=== PATIENT | female | born 1990 | race Caucasian/White ===

== ENCOUNTER → 2019-05-15 | Outpatient (CLI) | payer MEDICAID ==
--- NOTE | 2019-05-15 14:09 | Diagnostic Imaging Report ---
INDICATION: survey. TECHNIQUE: Multiple real-time grayscale images were obtained over the gravid uterus. COMPARISON: None. FINDINGS: There is a single live fetus in a cephalic presentation. heart rate was recorded at 160 beats per minute. Placenta is anterior and fundal. Amniotic fluid volume appears within normal limits. Cervical length is 3.9 cm. survey demonstrates kidneys, bladder, and stomach to be unremarkable. The brain is unremarkable. There is a four-chamber heart. There is a three-vessel cord. Cord insertion was not well visualized on today's study. The spine is unremarkable. Biometrical measurements are as follows: Biparietal 4.72 cm, age 20 weeks 2 days. Head circumference 17.1 cm, age 19 weeks 5 days. Abdominal circumference 13.6 cm, age 19 weeks 1 days. Femur length 3.1 cm, age 19 weeks 4 days. Sonographic estimate age: 19 weeks 5 days. Sonographic estimated date of delivery: 10/04/2019. Estimated Weight: 286 gm (+/- 42 gm). LMP percentile: 14%. heart rate: 160 beats per minute. number: 1 of 1. IMPRESSION: Single live IUP of approximately 19 weeks 5 days gestational age with estimated date of confinement sonographically of 10/04/2019. survey is unremarkable, although cord insertion was not well demonstrated on today's study. Dictated by: Dictated on workstation # [id number]
== END ==
LOC: RAD 12:10
PROVIDERS: ATTEND Obstetrics & Gynecology
DX: Z36.89 Encounter for other specified antenatal screening (principal); Z3A.19 19 weeks gestation of pregnancy
CPT/HCPCS: 76805

== ENCOUNTER → 2019-07-16 | Outpatient (CLI) | payer MEDICAID ==
--- NOTE | 2019-07-16 13:13 | Diagnostic Imaging Report ---
INDICATION: Smaller than dates. TECHNIQUE: Multiple real-time grayscale images were obtained over the gravid uterus. COMPARISON: None 05/15/2019. FINDINGS: There is a single live fetus in a cephalic presentation. heart rate was recorded at 140 beats per minute. Placenta is anterior. Amniotic fluid volume is 17.8 cm. Survey shows kidneys, bladder stomach to be unremarkable. The brain is unremarkable. There appears to be a two-vessel cord present. Cord insertion is unremarkable. Biometrical measurements are as follows: Biparietal 7.4 cm, age 29 weeks 4 days. Head circumference 26.4 cm, age 28 weeks 6 days. Abdominal circumference 24.3 cm, age 28 weeks 5 days. Femur length 5.4 cm, age 28 weeks 6 days. Sonographic estimate age: 29 weeks 0 days. Sonographic estimated date of delivery: 10/01/2019. Estimated Weight: 1270 G gm (+/- 185 gm). LMP percentile: 31%%. heart rate: 140 beats per minute. number: 1 of 1. IMPRESSION: Single live IUP approximately 29 weeks gestational age showing normal interval growth when compared with prior exam from 05/15/2019. Fetus appears to have a two-vessel cord. Followup can be performed. Dictated by: Dictated on workstation # [id number]
== END ==
LOC: RAD 12:02
PROVIDERS: ATTEND Obstetrics & Gynecology
DX: O26.842 Uterine size-date discrepancy, second trimester (principal); O21.0 Mild hyperemesis gravidarum; Z3A.29 29 weeks gestation of pregnancy
CPT/HCPCS: 76805

== ENCOUNTER 2019-09-28 07:37 | Inpatient (IN) | payer MEDICAID ==
[~2019-09-28] VITALS: Ht 165.1 cm; Wt 64.6 kg
[2019-09-28] VITALS (48 sets, daily range): BP systolic 105–142; BP diastolic 56–88
--- NOTE | 2019-09-28 07:30 | NUR ---
Arrive to unit with c/o contractions. Wt obtained and to room 320. gowned and urine sample obtained. to bed and monitors on. Oriented to room, call light and surroundings.
[2019-09-28 08:19] LABS: BILIRUBIN,URINE NEGATIVE (NEGATIVE); CLARITY,URINE CLEAR; COLOR,URINE YELLOW; GLUCOSE, URINE (UA) NEGATIVE (NEGATIVE); KETONES,URINE 1+ (NEGATIVE); LEUKOCYTE ESTERASE ,URINE NEGATIVE (NEGATIVE); NITRITE,URINE NEGATIVE (NEGATIVE); PH,URINE 7 (5-9); PROTEIN,URINE NEGATIVE (NEGATIVE)
[2019-09-28 08:26] LABS: BACTERIA,URINE FEW /HPF; WBC,URINE RARE /HPF
--- NOTE | 2019-09-28 08:50 | NUR ---
Dr Wood notified of pt arrival, gestation, contractions, fhr pattern, sve.
--- NOTE | 2019-09-28 09:49 | History & Physical-OB ---
OB - Chief Complaint & HPI Date/Time Date of Admission: Date of Admission: Date seen by a Provider: Sep 28, 2019 Time Seen by a Provider: 09:45 Chief Complaint/History OB-Reason for Admission/Chief: Onset of Labor Hx : 3 Hx Para: 1 Expected Date of Delivery: Oct 02, 2019 Gestational Age in Weeks: 39 Gestational Age in Days: 3 Admission Nurse Assessment Rev: Yes Allergies and Home Medications Allergies Coded Allergies: Penicillins (Verified Allergy, Unknown, 09/28/19) amoxicillin (Verified Allergy, Unknown, 09/28/19) cefaclor (Verified Allergy, Unknown, 09/28/19) nitrofurantoin (Verified Allergy, Unknown, 09/28/19) OB - History Hx of Present Care: Yes Obstetrical History Hx : 3 Hx Para: 1 Hx Total # of Abortions (Spona: 1 Social History/Family History Recent Infectious Disease Expo: No Alcohol Use: Denies Use Recreational Drug Use: No 2nd Hand Smoke Exposure: No Immunizations Date of Influenza Vaccine: Sep 18, 2019 OB - Admission Exam Physical Exam Vitals: Vital Signs 09/28/19 07:57 Temp 36.5 Pulse 74 Resp 16 Pulse Ox 99 O2 Delivery Room Air Labs Laboratory Tests Test 09/28/19 07:30 Range/Units Urine Color YELLOW Urine Clarity CLEAR Urine pH 7 5-9 Urine Specific Green 1.005 L 1.016-1.022 Urine Protein NEGATIVE NEGATIVE Urine Glucose (UA) NEGATIVE NEGATIVE Urine Ketones 1+ H NEGATIVE Urine Nitrite NEGATIVE NEGATIVE Urine Bilirubin NEGATIVE NEGATIVE Urine Urobilinogen NORMAL NORMAL MG/DL Urine Leukocyte Esterase NEGATIVE NEGATIVE Urine RBC (Auto) NEGATIVE NEGATIVE Urine RBC NONE /HPF Urine WBC RARE /HPF Urine Squamous Epithelial Cells 5-10 /HPF Urine Crystals NONE /LPF Urine Bacteria FEW H /HPF Urine Casts NONE /LPF Urine Mucus NEGATIVE /LPF Urine Culture Indicated NO BERNICE TORREZ DO Sep 28, 2019 09:49 POS
[2019-09-28 10:34] LABS: BASOPHILS % (AUTO) 0 % (0-10); EOSINOPHILS # (AUTO) 0.1 10^3/uL (0.0-0.3); EOSINOPHILS % (AUTO) 1 % (0-10); HEMATOCRIT 38 % (35-52); HEMOGLOBIN 13.1 G/DL (11.5-16.0); LYMPHOCYTES # (AUTO) 1.8 X 10^3 (1.0-4.0); LYMPHOCYTES % (AUTO) 15 % (12-44); MEAN CORPUSCULAR HEMOGLOBIN 31 PG (25-34); MEAN CORPUSCULAR HGB CONC 34 G/DL (32-36); MEAN CORPUSCULAR VOLUME 89 FL (80-99); MEAN PLATELET VOLUME 10.8 FL (7.4-10.4); MONOCYTES # (AUTO) 0.5 X 10^3 (0.0-1.0); MONOCYTES % (AUTO) 4 % (0-12); NEUTROPHILS % (AUTO) 81 % (42-75); PLATELET COUNT 220 10^3/uL (130-400); WHITE BLOOD COUNT 12.4 10^3/uL (4.3-11.0)
[2019-09-28] MEDS: D5 LR IV SOLUTION 1,000 ML IV SCH ×2 (10:45→18:01)
[2019-09-28] MEDS ORDERED: SUFENTA 0.6MCG/ML BUPIVA 0.125 100 ML ONE (16:38)
[2019-09-28] MEDS ORDERED: LIDOCAINE PF 2% 5 ML (XYLOCAINE) VIAL ONE (17:12)
[2019-09-28] MEDS ORDERED: METOCLOPRAMIDE INJ 10 MG/2 ML (REGLAN) IV PRN (17:15)
[2019-09-28] MEDS ORDERED: LACTATED RINGERS 1,000 ML IV SCH (17:15)
[2019-09-28] MEDS ORDERED: ONDANSETRON 4 MG/2 ML (SDV) Z0FRAN IV PRN (17:15)
[2019-09-28] MEDS ORDERED: EPIDURAL (SUFENTA 0.6MCG/ML BUPIVA 0.125%) 100 ML BAG EPI SCH (17:15)
[2019-09-28] MEDS ORDERED: NALOXONE 0.4 MG/ML 1 ML (NARCAN) VIAL IV PRN ×2 (17:15)
[2019-09-28] MEDS ORDERED: diphenhydrAMINE 50 MG/ML INJ (BENADRYL) IV PRN (17:15)
[2019-09-28] MEDS ORDERED: OXYTOCIN/NORMAL SALINE 500 ML IV ONE (19:43)
[2019-09-28] MEDS ORDERED: OXYTOCIN/NORMAL SALINE 500 ML IV SCH ×2 (19:45→21:52)
[2019-09-28] MEDS ORDERED: WITCH HAZEL(TUCKS) 40 EA JAR TOP PRN (22:00)
[2019-09-28] MEDS ORDERED: MEASLES,MUMPS,RUBELLA 1 EA INJ SQ ONE (22:00)
[2019-09-28] MEDS ORDERED: BENZOCAINE/MENTHOL (DERMOPLAST) 56 ML CAN TP PRN (22:00)
[2019-09-28] MEDS ORDERED: CATHETER FLUSH 10 ML SYR IV SCH (22:00)
[2019-09-28] MEDS ORDERED: DIBUCAINE (NUPERCAINAL) 1% OINT 30 GM TOP PRN (22:00)
[2019-09-28] MEDS ORDERED: TETANUS,DIPTH,PERTUSS P/F (BOOSTRIX) 0.5 ML VIAL IM ONE (22:00)
--- NOTE | 2019-09-28 22:02 | OB Labor & Delivery Record ---
Vag Delivery Note Vag Delivery Note Date of Delivery: 09/28/19 Preoperative Diagnosis: Jojo aMradiaga is a (29 /Para 3 / 1,Gestational Age (wks)39with [] Postoperative Diagnosis: Same Surgeon: BERNICE TORREZ Senior Partner: JUANA Anesthesia: epidurla Delivery Type: vaginal Findings: [] Viable ma;le infant, apgars 99, weight pending Lacerations: first degree Intact placenta with 3 vessel cord. No nuchal cord, body cord or shoulder dystocia. compound presentation with right hand at chin Estimated Blood Loss: 300 ml Complications: None Condition: Stable Description of Procedure: The patient is a 29 year old female who presented []. She was admitted and informed consent was obtained. Her labor course was remarkable for [] She progressed to complete dilatation and began to push. She was then set up for delivery. The infant's head was delivered atraumatically in the [] position. The shoulders and remainder of the 's body were then delivered without difficulty. Upon delivery, the head was held below the level of the perineum and the mouth and nares were bulb suctioned. The cord was doubly clamped and cut and the was handed off to the pediatric staff. An intact placenta with 3-vessel cord delivered via Rosana and there was found to be minimal bleeding.~ Vigorous fundal massage was performed and the fundus was found to be firm. IV oxytocin was given. Examination of the vagina and perineum revealed a [] laceration repaired in the usual fashion with 3-0 vicryl suture. Following the repair, sponge, instrument and needle counts were correct. Mom and baby were both in stable condition in the labor suite. Vitals - Labs Vital Signs - I&O Vital Signs Date Time Temp Pulse Resp B/P (MAP) Pulse Ox O2 Delivery O2 Flow Rate FiO2 09/28/19 20:30 80 18 133/88 (103) 99 Room Air 09/28/19 20:15 88 18 111/56 (74) 99 Room Air 09/28/19 20:00 78 18 117/69 (85) 99 Room Air 09/28/19 19:45 74 18 108/61 (77) 99 Room Air 09/28/19 19:30 71 18 113/59 (77) 99 Room Air 09/28/19 19:15 36.5 83 18 124/59 (80) 97 Room Air 09/28/19 19:00 75 18 105/66 (79) 97 Room Air 09/28/19 18:45 36.4 73 18 115/69 (84) 97 Room Air 09/28/19 18:40 72 18 110/68 (82) 98 Room Air 09/28/19 18:37 75 18 117/72 (87) 98 Room Air 09/28/19 18:30 69 18 115/68 (84) 97 Room Air 09/28/19 18:25 77 18 125/67 (86) 98 Room Air 09/28/19 18:20 73 18 118/74 (89) 98 Room Air 09/28/19 18:15 80 18 113/66 (82) 98 Room Air 09/28/19 18:10 80 18 113/66 (82) 98 Room Air 09/28/19 18:06 87 18 116/72 (87) 98 Room Air 09/28/19 18:03 92 18 120/73 (89) 98 Room Air 09/28/19 18:00 Room Air 09/28/19 17:56 122 18 125/79 (94) 98 Room Air 09/28/19 17:51 92 18 119/72 (88) 98 Room Air 09/28/19 17:48 85 18 109/63 (78) 98 Room Air 09/28/19 17:45 Room Air 09/28/19 17:40 93 18 118/67 (84) 99 Room Air 09/28/19 17:33 87 18 123/68 (86) 98 Room Air 09/28/19 17:30 78 18 129/65 (86) 98 Room Air 09/28/19 17:27 82 18 134/81 (98) 98 Room Air 09/28/19 17:24 104 18 130/83 (99) 97 Room Air 09/28/19 17:21 89 18 122/73 (89) 98 Room Air 09/28/19 17:18 84 18 130/80 (97) 98 Room Air 09/28/19 17:15 80 18 135/75 (95) 97 Room Air 09/28/19 17:10 97 18 124/81 (95) 98 Room Air 09/28/19 17:05 85 18 133/67 (89) 98 Room Air 09/28/19 17:00 Room Air 09/28/19 16:55 37.4 87 18 127/74 (91) 99 Room Air 09/28/19 16:45 Room Air 09/28/19 16:30 78 18 142/86 (104) Room Air 09/28/19 16:00 71 18 121/82 (95) Room Air 09/28/19 15:30 37.1 71 18 115/69 (84) Room Air 09/28/19 15:00 68 18 118/74 (89) Room Air 09/28/19 14:30 36.7 76 18 119/78 (92) Room Air 09/28/19 09:00 36.5 74 18 118/78 (91) 99 Room Air 09/28/19 07:57 36.5 74 16 99 Room Air 09/28/19 07:50 36.5 76 18 99 Room Air Labs Laboratory Tests 09/28/19 07:30: Urine Color YELLOW, Urine Clarity CLEAR, Urine pH 7, Urine Specific [place] 1.005L, Urine Protein NEGATIVE, Urine Glucose (UA) NEGATIVE, Urine Ketones 1+H, Urine Nitrite NEGATIVE, Urine Bilirubin NEGATIVE, Urine Urobilinogen NORMAL, Urine Leukocyte Esterase NEGATIVE, Urine RBC (Auto) NEGATIVE, Urine RBC NONE, Urine WBC RARE, Urine Squamous Epithelial Cells 5-10, Urine Crystals NONE, Urine Bacteria FEWH, Urine Casts NONE, Urine Mucus NEGATIVE, Urine Culture Indicated NO 09/28/19 10:20: White Blood Count 12.4H, Red Blood Count 4.29L, Hemoglobin 13.1, Hematocrit 38, Mean Corpuscular Volume 89, Mean Corpuscular Hemoglobin 31, Mean Corpuscular Hemoglobin Concent 34, Red Cell Distribution Width 13.0, Platelet Count 220, Mean Platelet Volume 10.8H, Neutrophils (%) (Auto) 81H, Lymphocytes (%) (Auto) 15, Monocytes (%) (Auto) 4, Eosinophils (%) (Auto) 1, Basophils (%) (Auto) 0, Neutrophils # (Auto) 10.0H, Lymphocytes # (Auto) 1.8, Monocytes # (Auto) 0.5, Eosinophils # (Auto) 0.1, Basophils # (Auto) 0.0 BERNICE TORREZ DO Sep 28, 2019 22:02 POS
[2019-09-28] MEDS: IBUPROFEN 600 MG (MOTRIN) TAB PO SCH (23:23)
--- NOTE | 2019-09-28 23:30 | NUR ---
ff1 below. light rubra noted. enrique care completed. pad and panties applied. pt assisted to w'c and taken down to room 310. pt assisted to bathroom. unable to void at this time. pt ambulated to bed. ice pack applied to perineum. call light within reach. pt denies any further needs at this time. will continue to monitor
[2019-09-29] MEDS: ACETAMINOPHEN 500 MG TAB (TYLENOL) PO SCH ×3 (02:14→18:45)
--- NOTE | 2019-09-29 02:20 | NUR ---
pt assisted to the bathroom. positive void. pericare completed. pt assisted back to bed.
[2019-09-29 02:23] VITALS: BP 102/58
[2019-09-29] MEDS: IBUPROFEN 600 MG (MOTRIN) TAB PO SCH ×3 (05:50→18:45)
[2019-09-29 06:19] LABS: BASOPHILS % (AUTO) 0 % (0-10); EOSINOPHILS # (AUTO) 0.1 10^3/uL (0.0-0.3); EOSINOPHILS % (AUTO) 1 % (0-10); HEMATOCRIT 34 % (35-52); HEMOGLOBIN 11.5 G/DL (11.5-16.0); LYMPHOCYTES # (AUTO) 2.2 X 10^3 (1.0-4.0); LYMPHOCYTES % (AUTO) 15 % (12-44); MEAN CORPUSCULAR HEMOGLOBIN 31 PG (25-34); MEAN CORPUSCULAR HGB CONC 34 G/DL (32-36); MEAN CORPUSCULAR VOLUME 90 FL (80-99); MEAN PLATELET VOLUME 10.4 FL (7.4-10.4); MONOCYTES # (AUTO) 0.9 X 10^3 (0.0-1.0); MONOCYTES % (AUTO) 6 % (0-12); NEUTROPHILS # (AUTO) 11.2 X 10^3 (1.8-7.8); NEUTROPHILS % (AUTO) 78 % (42-75); PLATELET COUNT 205 10^3/uL (130-400); RED CELL DISTRIBUTION WIDTH 13.1 % (10.0-14.5); WHITE BLOOD COUNT 14.4 10^3/uL (4.3-11.0)
[2019-09-29 08:30] VITALS: BP 108/63
[2019-09-29] MEDS: DOCUSATE SODIUM 100 MG (COLACE) CAP PO SCH ×2 (08:38→21:59)
[2019-09-29] MEDS: PRENATAL VITAMIN 1 EA TAB PO SCH (08:38)
[2019-09-29] MEDS: FERROUS SULF 325 MG (IRON) TAB PO SCH (08:38)
--- NOTE | 2019-09-29 08:39 | Postpartum Progress Note ---
Note Note Day # [] Subjective: Patient is without complaints. Ambulating, voiding. Tolerating a regular diet without nausea or vomiting. Normal lochia. Pain is well controlled with oral pain medications. [] feeding. [] Objective: 09/28/19 09/28/19 09/28/19 09/28/19 20:45 21:00 21:30 21:45 Pulse 77 102 89 92 Resp 18 18 18 18 B/P (MAP) 128/82 (97) 139/73 (95) 125/73 (90) 129/74 (92) Pulse Ox 99 99 99 99 O2 Delivery Room Air Room Air Room Air Room Air 09/28/19 09/28/19 09/28/19 09/28/19 22:00 22:15 22:30 22:45 Temp 36.5 36.5 Pulse 86 90 108 88 Resp 18 18 18 18 B/P (MAP) 110/72 (85) 119/63 (81) 121/65 (83) 120/70 (87) Pulse Ox 99 99 99 99 O2 Delivery Room Air Room Air Room Air Room Air 09/28/19 09/29/19 23:00 02:23 Temp 36.5 Pulse 90 72 Resp 18 18 B/P (MAP) 115/67 (83) 102/58 (73) Pulse Ox 99 99 O2 Delivery Room Air Room Air 09/29/19 00:00 Intake Total 1650 ml Output Total 300 ml Balance 1350 ml Laboratory Tests Test 09/28/19 10:20 09/29/19 06:04 Range/Units White Blood Count 12.4 H 14.4 H 4.3-11.0 10^3/uL Red Blood Count 4.29 L 3.75 L 4.35-5.85 10^6/uL Hemoglobin 13.1 11.5 11.5-16.0 G/DL Hematocrit 38 34 L 35-52 % Mean Corpuscular Volume 89 90 80-99 FL Mean Corpuscular Hemoglobin 31 31 25-34 PG Mean Corpuscular Hemoglobin Concent 34 34 32-36 G/DL Red Cell Distribution Width 13.0 13.1 10.0-14.5 % Platelet Count 220 205 130-400 10^3/uL Mean Platelet Volume 10.8 H 10.4 7.4-10.4 FL Neutrophils (%) (Auto) 81 H 78 H 42-75 % Lymphocytes (%) (Auto) 15 15 12-44 % Monocytes (%) (Auto) 4 6 0-12 % Eosinophils (%) (Auto) 1 1 0-10 % Basophils (%) (Auto) 0 0 0-10 % Neutrophils # (Auto) 10.0 H 11.2 H 1.8-7.8 X 10^3 Lymphocytes # (Auto) 1.8 2.2 1.0-4.0 X 10^3 Monocytes # (Auto) 0.5 0.9 0.0-1.0 X 10^3 Eosinophils # (Auto) 0.1 0.1 0.0-0.3 10^3/uL Basophils # (Auto) 0.0 0.0 0.0-0.1 10^3/uL Physical Exam: General - Alert and oriented, no apparent distress Abdomen - Soft, appropriately tender to palpation, non-distended, fundus firm at umbilicus Extremities - no edema, negative Venkatesh's bilaterally [] Assessment: [] post- day # [], status post [] vaginal delivery. Recovering well, hemodynamically stable [] Plan: Routine care. Encourage breast feeding. Encourage ambulation. Ferrous sulfate supplementation. Plan for discharge [] Vitals - Labs Vital Signs - I&O Vital Signs Date Time Temp Pulse Resp B/P (MAP) Pulse Ox O2 Delivery O2 Flow Rate FiO2 09/29/19 02:23 36.5 72 18 102/58 (73) 99 Room Air 09/28/19 23:00 90 18 115/67 (83) 99 Room Air 09/28/19 22:45 36.5 88 18 120/70 (87) 99 Room Air 09/28/19 22:30 108 18 121/65 (83) 99 Room Air 09/28/19 22:15 36.5 90 18 119/63 (81) 99 Room Air 09/28/19 22:00 86 18 110/72 (85) 99 Room Air 09/28/19 21:45 92 18 129/74 (92) 99 Room Air 09/28/19 21:30 89 18 125/73 (90) 99 Room Air 09/28/19 21:00 102 18 139/73 (95) 99 Room Air 09/28/19 20:45 77 18 128/82 (97) 99 Room Air 09/28/19 20:30 80 18 133/88 (103) 99 Room Air 09/28/19 20:15 88 18 111/56 (74) 99 Room Air 09/28/19 20:00 78 18 117/69 (85) 99 Room Air 09/28/19 19:45 74 18 108/61 (77) 99 Room Air 09/28/19 19:30 71 18 113/59 (77) 99 Room Air 09/28/19 19:15 36.5 83 18 124/59 (80) 97 Room Air 09/28/19 19:00 75 18 105/66 (79) 97 Room Air 09/28/19 18:45 36.4 73 18 115/69 (84) 97 Room Air 09/28/19 18:40 72 18 110/68 (82) 98 Room Air 09/28/19 18:37 75 18 117/72 (87) 98 Room Air 09/28/19 18:30 69 18 115/68 (84) 97 Room Air 09/28/19 18:25 77 18 125/67 (86) 98 Room Air 09/28/19 18:20 73 18 118/74 (89) 98 Room Air 09/28/19 18:15 80 18 113/66 (82) 98 Room Air 09/28/19 18:10 80 18 113/66 (82) 98 Room Air 09/28/19 18:06 87 18 116/72 (87) 98 Room Air 09/28/19 18:03 92 18 120/73 (89) 98 Room Air 09/28/19 18:00 Room Air 09/28/19 17:56 122 18 125/79 (94) 98 Room Air 09/28/19 17:51 92 18 119/72 (88) 98 Room Air 09/28/19 17:48 85 18 109/63 (78) 98 Room Air 09/28/19 17:45 Room Air 09/28/19 17:40 93 18 118/67 (84) 99 Room Air 09/28/19 17:33 87 18 123/68 (86) 98 Room Air 09/28/19 17:30 78 18 129/65 (86) 98 Room Air 09/28/19 17:27 82 18 134/81 (98) 98 Room Air 09/28/19 17:24 104 18 130/83 (99) 97 Room Air 09/28/19 17:21 89 18 122/73 (89) 98 Room Air 09/28/19 17:18 84 18 130/80 (97) 98 Room Air 09/28/19 17:15 80 18 135/75 (95) 97 Room Air 09/28/19 17:10 97 18 124/81 (95) 98 Room Air 09/28/19 17:05 85 18 133/67 (89) 98 Room Air 09/28/19 17:00 Room Air 09/28/19 16:55 37.4 87 18 127/74 (91) 99 Room Air 09/28/19 16:45 Room Air 09/28/19 16:30 78 18 142/86 (104) Room Air 09/28/19 16:00 71 18 121/82 (95) Room Air 09/28/19 15:30 37.1 71 18 115/69 (84) Room Air 09/28/19 15:00 68 18 118/74 (89) Room Air 09/28/19 14:30 36.7 76 18 119/78 (92) Room Air 09/28/19 09:00 36.5 74 18 118/78 (91) 99 Room Air I & O 09/29/19 07:00 Intake Total 1650 ml Output Total 300 ml Balance 1350 ml Labs Laboratory Tests 09/28/19 10:20: White Blood Count 12.4H, Red Blood Count 4.29L, Hemoglobin 13.1, Hematocrit 38, Mean Corpuscular Volume 89, Mean Corpuscular Hemoglobin 31, Mean Corpuscular Hemoglobin Concent 34, Red Cell Distribution Width 13.0, Platelet Count 220, Mean Platelet Volume 10.8H, Neutrophils (%) (Auto) 81H, Lymphocytes (%) (Auto) 15, Monocytes (%) (Auto) 4, Eosinophils (%) (Auto) 1, Basophils (%) (Auto) 0, Neutrophils # (Auto) 10.0H, Lymphocytes # (Auto) 1.8, Monocytes # (Auto) 0.5, Eosinophils # (Auto) 0.1, Basophils # (Auto) 0.0 09/29/19 06:04: White Blood Count 14.4H, Red Blood Count 3.75L, Hemoglobin 11.5, Hematocrit 34L, Mean Corpuscular Volume 90, Mean Corpuscular Hemoglobin 31, Mean Corpuscular Hemoglobin Concent 34, Red Cell Distribution Width 13.1, Platelet Count 205, Mean Platelet Volume 10.4, Neutrophils (%) (Auto) 78H, Lymphocytes (%) (Auto) 1 5, Monocytes (%) (Auto) 6, Eosinophils (%) (Auto) 1, Basophils (%) (Auto) 0, Neutrophils # (Auto) 11.2H, Lymphocytes # (Auto) 2.2, Monocytes # (Auto) 0.9, Eosinophils # (Auto) 0.1, Basophils # (Auto) 0.0 Microbiology 09/28/19 Urine Culture - Final, Complete NO GROWTH BERNICE TORREZ DO Sep 29, 2019 8:39 am POS
--- NOTE | 2019-09-29 08:40 | NUR ---
A.M. ASSESSMENT COMPLETED. VSS. PT HAS HAD THE TDAP AND FLU VACCINES. IN [facility] AT BEDSIDE.
--- NOTE | 2019-09-29 10:00 | NUR ---
SHOWERED WITHOUT PROBLEMS. SENT TO NURSERY FOR SHOWER.
--- NOTE | 2019-09-29 11:26 | NUR ---
FAMILY AT BEDSIDE. HAS BEEN IN TO ASSIST WITH FEEDING.
[2019-09-29 12:00] VITALS: BP 109/61
--- NOTE | 2019-09-29 12:45 | NUR ---
CONTINUES TO DO WELL. IN BED BESIDE MOM.
--- NOTE | 2019-09-29 13:17 | Anesthesia-Regional Post-Op ---
Regional Patient Condition Mental Status: Alert, Oriented x3 Circulation: Same as Pre-Op Headache: Absent Sensation: Full Recovery Motor Block: Absent Post Op Complications Complications None Follow Up Care/Instructions Patient Instructions None needed. Anesthesia/Patient Condition Patient is doing well, no complaints, stable vital signs, no apparent adverse anesthesia problems. No complications reported per nursing. MALINI DELANEY CRNA Sep 29, 2019 13:17 POS
--- NOTE | 2019-09-29 15:00 | NUR ---
CONTINUES TO CARE FOR IN ROOM. DOING WELL. C/O CRAMPING AT INTERVALS BUT DENIES PAIN THE MAJORITY OF THE TIME.
[2019-09-29 16:15] VITALS: BP 117/67
--- NOTE | 2019-09-29 16:45 | NUR ---
VSS. NO CHANGE IN STATUS.
--- NOTE | 2019-09-29 18:00 | NUR ---
EATING STORK MEAL. CONTINUES TO DO WELL. CARING FOR IN ROOM.
[2019-09-29 21:59] VITALS: BP 115/72
[2019-09-30] MEDS: IBUPROFEN 600 MG (MOTRIN) TAB PO SCH ×3 (00:59→12:22)
[2019-09-30 03:54] VITALS: BP 98/61
[2019-09-30] MEDS: ACETAMINOPHEN 500 MG TAB (TYLENOL) PO SCH ×2 (03:54→12:21)
[2019-09-30 09:00] VITALS: BP 115/69
--- NOTE | 2019-09-30 09:00 | NUR ---
A.M. ASSESSMENT COMPLETED. VSS. ENCOURAGED AMBULATION IN THE [facility] TODAY. CARING FOR INFANT IN ROOM.
[2019-09-30] MEDS: PRENATAL VITAMIN 1 EA TAB PO SCH (09:21)
[2019-09-30] MEDS: FERROUS SULF 325 MG (IRON) TAB PO SCH (09:21)
[2019-09-30] MEDS: DOCUSATE SODIUM 100 MG (COLACE) CAP PO SCH (09:21)
--- NOTE | 2019-09-30 10:40 | Postpartum Progress Note ---
Note Note Day # 2 s/p Subjective: Patient is without complaints. Ambulating, voiding. Tolerating a regular diet w ithout nausea or vomiting. Normal lochia. Pain is well controlled with oral pain medications. breast feeding. Objective: 09/30/19 09/30/19 03:54 09:00 Temp 37.1 36.6 Pulse 68 89 Resp 18 18 B/P (MAP) 98/61 (73) 115/69 (84) Pulse Ox 97 98 O2 Delivery Room Air Room Air Physical Exam: General - Alert and oriented, no apparent distress Abdomen - Soft, appropriately tender to palpation, non-distended, fundus firm at umbilicus Extremities - no edema, negative Venkatesh's bilaterally [] Assessment: [] post- day # [], status post [] vaginal delivery. Recovering well, hemodynamically stable [] Plan: Routine care. Encourage breast feeding. Encourage ambulation. Ferrous sulfate supplementation. Plan for discharge [] Vitals - Labs Vital Signs - I&O Vital Signs Date Time Temp Pulse Resp B/P (MAP) Pulse Ox O2 Delivery O2 Flow Rate FiO2 09/30/19 09:00 36.6 89 18 115/69 (84) 98 Room Air 09/30/19 03:54 37.1 68 18 98/61 (73) 97 Room Air 09/29/19 21:59 36.8 67 18 115/72 (86) 98 Room Air 09/29/19 16:15 37.2 76 18 117/67 (84) 97 Room Air 09/29/19 12:00 36.8 77 18 109/61 (77) 96 Room Air Labs Microbiology 09/28/19 Urine Culture - Final, Complete NO GROWTH BERNICE TORREZ DO Sep 30, 2019 10:40 POS
--- NOTE | 2019-09-30 11:00 | NUR ---
AMBULATING IN THE [facility]. MOVES WELL. ANXIOUS TO GO HOME.
[2019-09-30] MEDS ORDERED: IBUP-844 PO (11:59)
[2019-09-30] MEDS ORDERED: ACET-77 PO (11:59)
--- NOTE | 2019-09-30 12:00 | Discharge Inst-Women's Service ---
Discharge Inst-Women's Serv Depart Medication/Instructions New, Converted or Re-Newed RX: RX on Chart Final Diagnosis labor vaginal delivery Problems Reviewed?: Yes Consults/Follow Up Additional Follow Up: Yes Activity Activity: Activity as Tolerated Driving Instructions: You May Drive NO SMOKING: NO SMOKING Nothing Inside Vagina: No Douching, No [place], No Tampons Diet Discharge Diet: No Restrictions Symptoms to Report to : Swelling Increased, Bleeding Excessive, Fever Over 1 01 Degrees F, Vaginal Bleeding Increase, Cramps in Feet or Legs, Vaginal Discharge Foul For Any Problems or Questions: Contact Your Physician Skin/Wound Care Bathing Instructions: BERNICE Paulino DO Sep 30, 2019 12:00 POS
--- NOTE | 2019-09-30 12:23 | NUR ---
DR. TORREZ HERE TO SEE PT. PLAN FOR DISCHARGE.
[2019-09-30 13:00] VITALS: BP 107/65
--- NOTE | 2019-09-30 13:45 | NUR ---
DISCHARGE INSTRUCTIONS REVIEWED WITH COPY TO PT. RXS CALLED TO [facility] PER PT REQUEST. STATES UNDERSTANDING OF ALL INSTRUCTIONS AND NEED TO F/U SCHEDULED AND NEEDED.
[2019-09-30 14:45] VITALS: BP 107/65
--- NOTE | 2019-09-30 14:45 | NUR ---
DISMISSED AMB FROM [facility] WITH INFANT IN STABLE CONDITION TO FAMILY CAR ACC BY S.O., MOTHER, OLDER CHILD, AND KEVIN ANDRADE RN.
== END 2019-09-30 14:45 | disposition home or self-care (01) | DRG 807 ==
LOC: LDRP 07:37 → WSo 07:37 → LDRP 09:57
PROVIDERS: ADMIT Obstetrics & Gynecology; ATTEND Obstetrics & Gynecology
PROC: 10E0XZZ Delivery of Products of Conception, External Approach (ICD-10-PCS; principal; 2019-09-28)
PROC: 0HQ9XZZ Repair Perineum Skin, External Approach (ICD-10-PCS; principal; 2019-09-28)
DX: O70.0 First degree perineal laceration during delivery (principal); Z37.0 Single live birth; Z3A.39 39 weeks gestation of pregnancy
CPT/HCPCS: 36415; 81000; 85025; 86850; 86900; 86901; 87088; 99212